=== PATIENT | female | born 1995 | race Caucasian/White ===

== ENCOUNTER 2021-04-13 12:16 | Emergency (ER) | payer OTHER, SELFPAY ==
--- NOTE | ~2021-04-13 | XR_ITS ---
EXAMINATION: XR CHEST CLINICAL INFORMATION: Shortness of breath, COVID positive. COMPARISON: None. TECHNIQUE: PA view of the chest was obtained. FINDINGS: Normal appearance of the cardiomediastinal silhouette. No focal airspace opacities, pleural effusions or pneumothorax. No acute osseous abnormalities. Normal appearance of the visualized upper abdomen. XR/XR chest 1V IMPRESSION: No acute cardiopulmonary findings.
[2021-04-13 14:23] VITALS: BP 106/65; PULSE 120; RESP 14; TEMP 38.3; O2SAT 100; BMI 22.7
[2021-04-13] MEDS: Acetaminophen 325 MG TABLET 650 MG PO ×2 (14:34→18:55)
[2021-04-13 14:52] LABS: COVID-19 Test Positive (Negative); IDNOW Serial# 55D5AD1C
--- NOTE | 2021-04-13 16:43 | ED.GENADULT ---
HPI - General Adult General Chief complaint: General Medical Stated complaint: numbness from hip down dizzy Time Seen by Provider: 04/13/21 13:08 Related Data Previous Rx's Medication Instructions Recorded ondansetron HCl 4 mg tablet 4 mg PO BEDTIME PRN 4 Days tab 04/13/21 Allergies Allergy/AdvReac Type Severity Reaction Status Date / Time citrus Allergy Unknown sores in Uncoded 10/05/13 00:00 mouth PMFSH Past Medical History Medical History Hyperthyroidism Miscarriage Social History Social History Advance Directives: No Advance Directives Information Provided: No Patient : No Physical Exam Vital Signs: Vital Signs: Last Vital Signs Temp 98.7 F 04/13/21 18:11 Pulse 101 H 04/13/21 18:11 Resp 17 04/13/21 18:59 BP 100/64 04/13/21 18:11 Pulse Ox 100 04/13/21 18:11 BMI result Body Mass Index 22.7 Medical Decision Making Lab Data Result diagrams: 04/13/21 17:51 04/13/21 17:51 Labs: Lab Results 04/13/21 04/13/21 04/13/21 Range/Units 14:33 17:51 17:51 WBC 3.9 L (4.8-10.8) X10*3/uL RBC 4.21 (4.20-5.50) X10*6/uL Hgb 12.5 (12.0-16.0) g/dl Hct 36.6 L (37.0-47.0) % MCV 86.9 (80.0-98.0) fL MCH 29.7 (27.0-33.0) pg MCHC 34.2 (31.0-35.0) g/dl RDW 12.4 (11.0-16.0) % Plt Count 150 L (160-400) X10*3/uL MPV 10.6 (9.4-12.3) fL Immature Gran % (Auto) 0.5 H (0.0-0.4) % Neut % (Auto) 80.5 H (45-73) % Lymph % (Auto) 4.6 L (20-40) % [place] % (Auto) 14.1 H (2-11) % Eos % (Auto) 0.0 (0-4) % Baso % (Auto) 0.3 (0-2) % Lymph # (Auto) 0.2 L (1.2-4.9) X10*3/uL [place] # (Auto) 0.6 (0.1-1.2) X10*3/uL Eos # (Auto) 0.0 (0.0-0.4) X10*3/uL Baso # (Auto) 0.0 (0.0-0.2) X10*3/uL Abs Immat Gran (auto) 0.02 (0.00-0.03) X10*3/uL Absolute Neuts (auto) 3.1 (2.0-8.3) x10*3/uL Absolute Nucleated RBC 0.000 (0.0-0.012) X10*3/uL Nucleated RBC % (auto) 0.0 (0.0-0.2) /100WBC Sodium 137 (135-145) mmol/L Potassium 3.7 (3.3-5.1) mmol/L Chloride 103 (96-108) mmol/L Carbon Dioxide 28 (22-29) mmol/L Anion Gap 10 L (12-20) BUN 11 (9-16) mg/dL Creatinine 0.80 (0.5-1.4) mg/dL Estim Creat Clear Calc 103.6 Estimated GFR > 60 Random Glucose 99 (60-115) mg/dL Calcium 9.0 (8.4-10.2) mg/dL Total Bilirubin 0.4 (0.0-1.0) mg/dL Direct Bilirubin 0.2 (0.0-0.5) mg/dL AST 19 (5-31) U/L ALT 16 (0-31) U/L Alkaline Phosphatase 40 (39-117) U/L Total Protein 7.0 (6.5-8.0) g/dL Albumin 4.1 (3.5-5.0) g/dL Lipase 11 (8-78) U/L Urine Color Urine Appearance Urine pH (5.0-8.0) Ur Specific [place] (1.005-1.025) Urine Protein (NEG-TRACE) MG/DL Urine Glucose (UA) (NEG) MG/DL Urine Ketones (NEG) MG/DL Urine Blood (NEG) Urine Nitrite (NEG) Ur Leukocyte Esterase (NEG) Urine RBC (0) /HPF Urine WBC (0-4) /HPF Ur Squamous Epith Cells /LPF Urine Bacteria /LPF Urine Mucus /LPF Urine Test (NEGATIVE) COVID-19 ([facility]) Positive A (Negative) COVID-19 Clin Com See Note 04/13/21 04/13/21 Range/Units 19:40 19:41 WBC (4.8-10.8) X10*3/uL RBC (4.20-5.50) X10*6/uL Hgb (12.0-16.0) g/dl Hct (37.0-47.0) % MCV (80.0-98.0) fL MCH (27.0-33.0) pg MCHC (31.0-35.0) g/dl RDW (11.0-16.0) % Plt Count (160-400) X10*3/uL MPV (9.4-12.3) fL Immature Gran % (Auto) (0.0-0.4) % Neut % (Auto) (45-73) % Lymph % (Auto) (20-40) % [place] % (Auto) (2-11) % Eos % (Auto) (0-4) % Baso % (Auto) (0-2) % Lymph # (Auto) (1.2-4.9) X10*3/uL [place] # (Auto) (0.1-1.2) X10*3/uL Eos # (Auto) (0.0-0.4) X10*3/uL Baso # (Auto) (0.0-0.2) X10*3/uL Abs Immat Gran (auto) (0.00-0.03) X10*3/uL Absolute Neuts (auto) (2.0-8.3) x10*3/uL Absolute Nucleated RBC (0.0-0.012) X10*3/uL Nucleated RBC % (auto) (0.0-0.2) /100WBC Sodium (135-145) mmol/L Potassium (3.3-5.1) mmol/L Chloride (96-108) mmol/L Carbon Dioxide (22-29) mmol/L Anion Gap (12-20) BUN (9-16) mg/dL Creatinine (0.5-1.4) mg/dL Estim Creat Clear Calc Estimated GFR Random Glucose (60-115) mg/dL Calcium (8.4-10.2) mg/dL Total Bilirubin (0.0-1.0) mg/dL Direct Bilirubin (0.0-0.5) mg/dL AST (5-31) U/L ALT (0-31) U/L Alkaline Phosphatase (39-117) U/L Total Protein (6.5-8.0) g/dL Albumin (3.5-5.0) g/dL Lipase (8-78) U/L Urine Color YELLOW Urine Appearance CLEAR Urine pH 6.0 (5.0-8.0) Ur Specific [place] 1.015 (1.005-1.025) Urine Protein NEG (NEG-TRACE) MG/DL Urine Glucose (UA) NEG (NEG) MG/DL Urine Ketones 5 (NEG) MG/DL Urine Blood TRACE (NEG) Urine Nitrite NEG (NEG) Ur Leukocyte Esterase NEG (NEG) Urine RBC 1-4 (0) /HPF Urine WBC 1-4 (0-4) /HPF Ur Squamous Epith Cells TRACE /LPF Urine Bacteria TRACE /LPF Urine Mucus 1+ /LPF Urine Test NEGATIVE (NEGATIVE) COVID-19 ([facility]) (Negative) COVID-19 Clin Com Discharge Plan Discharge Clinical Impression: COVID-19 virus infection Patient Disposition: Home, Self-Care Instructions: COVID-19 (Coronavirus Disease 2019) (ED) Additional Instructions: frequent hand washing, use face mask at all times, keep social distancing, self quarantine for 10 days, use Tylenol for fever, return to the emergency department if difficulty breathing. Prescriptions: New ondansetron HCl 4 mg tablet 4 mg PO BEDTIME PRN (Reason: nausea and vomiting) 4 Days RF: 0 Referrals: Physician,Unknown J [Primary Care Provider] - 2 weeks Stand Alone Forms: Work/School Release Interventions: ED Discharge Assessment Last Done: 04/13/21 20:15 Discharge Date/Time: 04/13/21 21:02
--- NOTE | 2021-04-13 16:51 | ED_ITS ---
HPI - General Adult General Chief complaint: General Medical Stated complaint: numbness from hip down dizzy Time Seen by Provider: 04/13/21 13:08 Source: patient Mode of arrival: ambulatory Limitations: no limitations History of Present Illness HPI narrative: 26-year-old female came in for evaluation of generalized weakness. Patient woke up this morning with bilateral lower extremities numbness and weakness, patient also felt sore throat, generalized body ache, fever, chills, patient also been complaining of nausea and vomited twice today. Patient stated she took 2 Pfizer vaccination but not the booster. Related Data Previous Rx's Medication Instructions Recorded ondansetron HCl 4 mg tablet 4 mg PO BEDTIME PRN 4 Days tab 04/13/21 Allergies Allergy/AdvReac Type Severity Reaction Status Date / Time citrus Allergy Unknown sores in Uncoded 10/05/13 00:00 mouth Review of Systems Review of Systems: All other systems are reviewed and are negative Constitutional: Reports as per HPI and Reports no additional constitutional complaints Eyes: Reports as per HPI and Reports no additional eye complaints Reports system reviewed and no additional complaints, except as documented Cardiovascular: Reports as per HPI and Reports no additional cardiovascular complaints Respiratory: Reports as per HPI and Reports no additional respiratory complaints Gastrointestinal: Reports as per HPI and Reports no additional gastrointestinal complaints Genitourinary: Reports no additional female genitourinary complaints Musculoskeletal: Reports no additional musculoskeletal complaints Skin/Breast: Reports system reviewed and no additional complaints, except as docu Psychiatric: Reports no additional psychiatric complaints Endocrine: Reports no additional endocrine complaints Hematologic/Lymphatic: Reports no additional hematologic/lymphatic complaints Allergic/Immunologic: Reports no additional allergic/immunologic complaints Reports system reviewed and no additional complaints, except as documented and Reports Abnormal speech present [facility] Past Medical History Medical History Hyperthyroidism Miscarriage Social History Social History Advance Directives: No Advance Directives Information Provided: No Patient : No Physical Exam Vital Signs: Vital Signs: Last Vital Signs Temp 98.7 F 04/13/21 18:11 Pulse 101 H 04/13/21 18:11 Resp 17 04/13/21 18:59 BP 100/64 04/13/21 18:11 Pulse Ox 100 04/13/21 18:11 BMI result Body Mass Index 22.7 Vital signs have been reviewed as appeared to be correct. Blood pressure normal. Heart rate elevated. Respiration rate normal. Temperature elevated. Oxygen saturation normal. Appearance: Alert. Oriented X3. No acute distress. Head: Normal external exam. Normocephalic. Atraumatic. No Hodges signs noted. No raccoon eyes noted Eyes: PERRLA. EOMI. Conjunctiva and sclera normal. Eyelids normal. ENT: TM's Normal. Pharynx normal. Uvula midline. Moist mucous membranes. No trismus noted. No drooling noted. No muffled voice noted. Neck: Normal inspection. Neck supple. FROM. No adenopathy. Thyroid Normal. No meningeal signs. No neck mass noted. CVS: Normal heart rate and rhythm. Heart sound normal. No murmurs noted. Pulses normal throughout. Respiratory: No respiratory distress. Painless inspiration. Breath sounds normal. No wheezes/rales/rhonchi noted. Chest nontender. No accessory muscle usage noted or decreased air movement noted. Abdomen: Soft and nontender. Bowel sounds normal in all 4 quadrants. No di stention noted. No organomegaly noted. No visible injury noted. Back: No CVA tenderness. Full range of motion noted. Skin: Skin warm and dry. Normal skin color. Normal skin turgor. No rashes/le sions/lacerations noted. Extremities: No lower extremity edema. Extremities exhibit normal range of motion. Extremities nontender. Neuro: Oriented X 3. Cranial nerve exam: II-XII are grossly intact No motor deficit. No sensory deficit. Reflexes normal. Course Course Course Narrative: assessment and plan. 26-year-old female came in with vomiting, nausea, generalized body ache, patient tested positive for COVID. vital signs stable, oxygenation is normal, chest x-ray is unremarkable. Patient is able to tolerate p.o. intake. Will discharge the patient with frequent hand washing, face mask, social distancing, self quarantine for the next 10 days. Will prescribe Zofran to help patient with nausea and vomiting. Medical Decision Making Lab Data Lab results reviewed: Yes I reviewed the patient's lab results. Result diagrams: 04/13/21 17:51 04/13/21 17:51 Labs: Lab Results 01/13/22 01/13/22 01/13/22 Range/Units 14:33 17:51 17:51 WBC 3.9 L (4.8-10.8) X10*3/uL RBC 4.21 (4.20-5.50) X10*6/uL Hgb 12.5 (12.0-16.0) g/dl Hct 36.6 L (37.0-47.0) % MCV 86.9 (80.0-98.0) fL MCH 29.7 (27.0-33.0) pg MCHC 34.2 (31.0-35.0) g/dl RDW 12.4 (11.0-16.0) % Plt Count 150 L (160-400) X10*3/uL MPV 10.6 (9.4-12.3) fL Immature Gran % (Auto) 0.5 H (0.0-0.4) % Neut % (Auto) 80.5 H (45-73) % Lymph % (Auto) 4.6 L (20-40) % [place] % (Auto) 14.1 H (2-11) % Eos % (Auto) 0.0 (0-4) % Baso % (Auto) 0.3 (0-2) % Lymph # (Auto) 0.2 L (1.2-4.9) X10*3/uL [place] # (Auto) 0.6 (0.1-1.2) X10*3/uL Eos # (Auto) 0.0 (0.0-0.4) X10*3/uL Baso # (Auto) 0.0 (0.0-0.2) X10*3/uL Abs Immat Gran (auto) 0.02 (0.00-0.03) X10*3/uL Absolute Neuts (auto) 3.1 (2.0-8.3) x10*3/uL Absolute Nucleated RBC 0.000 (0.0-0.012) X10*3/uL Nucleated RBC % (auto) 0.0 (0.0-0.2) /100WBC Sodium 137 (135-145) mmol/L Potassium 3.7 (3.3-5.1) mmol/L Chloride 103 (96-108) mmol/L Carbon Dioxide 28 (22-29) mmol/L Anion Gap 10 L (12-20) BUN 11 (9-16) mg/dL Creatinine 0.80 (0.5-1.4) mg/dL Estim Creat Clear Calc 103.6 Estimated GFR > 60 Random Glucose 99 (60-115) mg/dL Calcium 9.0 (8.4-10.2) mg/dL Total Bilirubin 0.4 (0.0-1.0) mg/dL Direct Bilirubin 0.2 (0.0-0.5) mg/dL AST 19 (5-31) U/L ALT 16 (0-31) U/L Alkaline Phosphatase 40 (39-117) U/L Total Protein 7.0 (6.5-8.0) g/dL Albumin 4.1 (3.5-5.0) g/dL Lipase 11 (8-78) U/L COVID-19 ([facility]) Positive A (Negative) COVID-19 Clin Com See Note Imaging Data CT scan - chest: Attestation: I personally reviewed and interpreted this imaging study as follows: Radiologist's impression: No acute cardiopulmonary findings. Discharge Plan Discharge Clinical Impression: COVID-19 virus infection Patient Disposition: Home, Self-Care Instructions: COVID-19 (Coronavirus Disease 2019) (ED) Additional Instructions: frequent hand washing, use face mask at all times, keep social distancing, self quarantine for 10 days, use Tylenol for fever, return to the emergency department if difficulty breathing. Prescriptions: New ondansetron HCl 4 mg tablet 4 mg PO BEDTIME PRN (Reason: nausea and vomiting) 4 Days RF: 0 Referrals: Physician,Unknown J [Primary Care Provider] - 2 weeks Stand Alone Forms: Work/School Release
[2021-04-13] MEDS: Ketorolac Tromethamine 30 MG/ML VIAL IVPUSH (17:55)
[2021-04-13] MEDS: 0.9 % Sodium Chloride 1,000 ML 999 ML IV (17:56)
[2021-04-13 17:57] LABS: MANUAL DIFF FLAG NO
[2021-04-13 18:11] VITALS: BP 100/64; PULSE 101; RESP 17; TEMP 37.1; O2SAT 100
[2021-04-13 18:12] LABS: Alanine Aminotransferase 16 U/L (0-31); Albumin Level 4.1 g/dL (3.5-5.0); Alkaline Phosphatase 40 U/L (39-117); Anion Gap 10 (12-20); Aspartate Amino Transferase 19 U/L (5-31); Bilirubin Direct 0.2 mg/dL (0.0-0.5); Bilirubin Total 0.4 mg/dL (0.0-1.0); Blood Urea Nitrogen 11 mg/dL (9-16); Carbon Dioxide 28 mmol/L (22-29); Chloride 103 mmol/L (96-108); Creatinine Clr Calc Pharmacy 103.6; Estimated Glomerular Filt Rate > 60; Glucose Random 99 mg/dL (60-115); Lipase 11 U/L (8-78); Potassium 3.7 mmol/L (3.3-5.1); Sodium 137 mmol/L (135-145)
[2021-04-13] MEDS: ondansetron HCL 4 MG/2 ML VIAL IVPUSH (18:25)
[2021-04-13 18:27] LABS: Basophils Percent Auto 0.3 % (0-2); Hematocrit 36.6 % (37.0-47.0); Hemoglobin 12.5 g/dl (12.0-16.0); Imm Gran Abs Auto 0.02 X10*3/uL (0.00-0.03); Imm Gran Pct Auto 0.5 % (0.0-0.4); Lymphocytes Absolute Auto 0.2 X10*3/uL (1.2-4.9); Lymphocytes Percent Auto 4.6 % (20-40); Mean Corpuscular HGB Conc 34.2 g/dl (31.0-35.0); Mean Corpuscular Hemoglobin 29.7 pg (27.0-33.0); Mean Corpuscular Volume 86.9 fL (80.0-98.0); Mean Platelet Volume 10.6 fL (9.4-12.3); Monocytes Absolute Auto 0.6 X10*3/uL (0.1-1.2); Monocytes Percent Auto 14.1 % (2-11); Neutrophils Absolute Auto 3.1 x10*3/uL (2.0-8.3); Neutrophils Percent Auto 80.5 % (45-73); Platelet Count 150 X10*3/uL (160-400); Red Blood Count 4.21 X10*6/uL (4.20-5.50); Red Cell Distribution Width 12.4 % (11.0-16.0); White Blood Count 3.9 X10*3/uL (4.8-10.8)
[2021-04-13 18:59] VITALS: RESP 17
[2021-04-13 19:57] LABS: Appearance Urine CLEAR; Color Urine YELLOW; Glucose Urine UA NEG (NEG); Leukocyte Esterase Urine NEG (NEG); Nitrite Urine NEG (NEG); Specific Gravity - Urine 1.015 (1.005-1.025); UACC Culture Trigger NO; Urine Blood TRACE (NEG); Urine Ketones 5 MG/DL (NEG); Urine Protein NEG (NEG-TRACE)
[2021-04-13 20:08] LABS: UPreg QC Valid YES; Urine Pregnancy NEGATIVE (NEGATIVE)
[2021-04-13 20:16] LABS: Squamous Epithelial Cell Urine TRACE /LPF
[2021-04-13 20:17] LABS: Bacteria Urine TRACE /LPF; Mucus Urine 1+ /LPF
== END 2021-04-13 21:02 | disposition home or self-care (01) ==
PROVIDERS: Emergency Provider Emergency Medicine
DX: U07.1 COVID-19 (principal)
CPT/HCPCS: 36415; 71045; 80048; 80076; 81001; 81025; 83690; 85025; 87635; 96361; 96374; 96375; 99284; J1885; J2405